=== PATIENT | female | born 1940 | race Hispanic/Latino ===

== ENCOUNTER 2019-08-14 08:10 | Outpatient (CLI) | payer MEDICARE ==
--- NOTE | 2019-08-14 10:08 | Fluoroscopy Report ---
UPPER GI SERIES WITH AIR CONTRAST HISTORY: Oral pharyngeal dysphagia, functional dyspepsia FINDINGS: 2.0 minutes of fluoroscopy time was utilized. 50 fluoroscopic images were captured. Deglutition is normal. No evidence for aspiration. A prominent cricopharyngeal muscle is identified s uggesting cricopharyngeal dysphagia. The remainder of the esophagus is normal caliber and mucosal pat tern. A small sliding hiatal hernia was witnessed with occasional episodes of reflux into the mid to distal esophagus. Occasional esophageal spasm was also witnessed. There is mild mucosal thickening throughout the stomach suggesting a mild gastritis. No evidence for ulceration or mass. The duodenal bulb and duodenal sweep are within normal limits. 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 Small sliding hiatal hernia with occasional episodes of reflux. Mild esophageal spasm. Mild gastritis is suspected. Signer Name: Tmiothy Taylor Jr, MD Signed: 08/14/2019 10:04 AM Workstation Name: [id number]
== END 2019-08-14 08:11 | disposition home or self-care (01) ==
LOC: FLUORO 08:10
PROVIDERS: ATTEND Internal Medicine Gastroenterology
DX: K44.9 Diaphragmatic hernia without obstruction or gangrene (principal); K22.4 Dyskinesia of esophagus; Z88.5 Allergy status to narcotic agent; Z88.8 Allergy status to other drugs, medicaments and biological substances
CPT/HCPCS: 74246